=== PATIENT | female | born 2000 | race Caucasian/White ===

== ENCOUNTER 2022-12-24 15:25 | Outpatient (CLI) | payer BC, SELFPAY ==
--- NOTE | ~2022-12-24 | XR_ITS ---
EXAM: XR ankle RT min 3V DATE: 12/24/2022 16:00 HISTORY: injury of right ankle . COMPARISON: None available. FINDINGS: Normal mineralization. Small ossific fragment at the tip of the lateral malleolus. No lyti c or blastic lesion. Joint spaces are maintained. No erosion or periosteal change. Lateral soft tissu e swelling. Ankle joint effusion. IMPRESSION: Lateral malleolus tip avulsion fracture. Reviewed, dictated and finalized at location K.
== END 2022-12-24 15:26 ==
PROVIDERS: PCP Family Medicine; Visit Provider Nurse Practitioner Family
DX: S82.61XA Displaced fracture of lateral malleolus of right fibula, initial encounter for closed fracture (principal); X58.XXXA Exposure to other specified factors, initial encounter
CPT/HCPCS: 73610